=== PATIENT | female | born 1955 | race Caucasian/White ===

== ENCOUNTER 2025-06-06 16:58 | Emergency (ER) | payer MEDICARE, OTHER ==
[2025-06-06] MEDS ORDERED: Sodium Chloride 0.9% 10 ML Syringe FLUSH PRN (17:08)
[2025-06-06 17:39] LABS: BASOPHILS ABSOLUTE AUTO 0.1 x10^3/uL (0.0-0.2); BASOPHILS PERCENT AUTO 0.7 % (0.2-1.2); EOSINOPHILS ABSOLUTE AUTO 0.2 x10^3/uL (0.0-0.5); EOSINOPHILS PERCENT AUTO 2.0 % (0.0-4.0); IMMATURE GRAN ABSOLUTE AUTO 0.02 x10^3/uL (0.00-0.07); IMMATURE GRAN PERCENT AUTO 0.20 % (0.00-0.43); LYMPHOCYTES ABSOLUTE AUTO 2.1 x10^3/uL (1.0-4.8); LYMPHOCYTES PERCENT AUTO 23.9 % (25.0-50.0); MONOCYTES ABSOLUTE AUTO 0.6 x10^3/uL (0.0-0.8); MONOCYTES PERCENT AUTO 6.6 % (2.0-11.0); NEUTROPHILS ABSOLUTE AUTO 5.9 x10^3/uL (1.8-7.7); NEUTROPHILS PERCENT AUTO 66.6 % (50.0-80.0); PLATELET COUNT,PLT 207 x10^3/uL (130-400); RED BLOOD CELL COUNT 5.20 x10^6/uL (4.00-5.50); WHITE BLOOD CELL COUNT,WBC 8.9 x10^3/uL (4.0-10.0)
[2025-06-06 17:43] LABS: HCO3 VENOUS,POC 29 mmol/L (22-29); O2 SATURATION VENOUS,POC 59 %; PCO2 VENOUS,POC 49 mmHg (41-51); PH VENOUS,POC 7.39 pH (7.32-7.43); PO2 VENOUS,POC 32 mmHg
[2025-06-06 17:56] LABS: INR 1.0 (0.9-1.1); PTT,PARTIAL THROMBOPLSTIN TIME 23.4 SEC (23.5-33.2)
[2025-06-06 17:58] LABS: LACTIC ACID 1.5 mmol/L (0.4-2.0)
[2025-06-06 18:04] LABS: A/G RATIO 0.90; ALANINE AMINOTRANSFERASE,ALT 34 U/L (14-59); ASPARTATE AMNIOTRANSFERASE,AST 23 U/L (15-37); BILIRUBIN TOTAL 0.6 mg/dL (0.2-1.0); BLOOD UREA NITROGEN,BUN 16 mg/dL (7-18); CARBON DIOXIDE,CO2 27 mmol/L (21-32); CHLORIDE,CL 102 mmol/L (98-107); CREATININE 0.9 mg/dL (0.55-1.02); GLUCOSE RANDOM 147 mg/dL (70-99); POTASSIUM,K 4.1 mmol/L (3.5-5.1); PROTEIN TOTAL,TP 8.0 g/dL (6.4-8.2); SODIUM,NA 138 mmol/L (136-145); TSH ULTRASENSITIVE 1.501 uIU/mL (0.358-3.74)
[2025-06-06 18:05] LABS: ESTIMATED GFR 68 mL/min (>=60)
[2025-06-06] MEDS: Furosemide 40 MG/4 ML VIAL IV ONE (18:25)
[2025-06-06] MEDS: methylPREDNISolone Sodium Succinate 125 MG/2 ML SDV IV ONE (18:25)
[2025-06-06] MEDS: Nitroglycerin 0.4 MG Tab.SL SL ONE (18:26)
[2025-06-06] MEDS: Iopamidol 755 Mg/ML 100 ML Bottle IVPUSH ONE (19:45)
[2025-06-06] MEDS: Heparin Sodium/0.45% NaCl 25,000 UNITS/250 ML BAG IV ONE (19:45)
[2025-06-06] MEDS: Heparin Sodium 5,000 Units/ML Vial IVPUSH ONE (19:47)
== END 2025-06-06 22:05 | disposition short-term general hospital (02) ==
LOC: VM.ED 16:58
DX: J18.9 Pneumonia, unspecified organism (principal); I21.4 Non-ST elevation (NSTEMI) myocardial infarction; I11.0 Hypertensive heart disease with heart failure; I50.9 Heart failure, unspecified; E11.9 Type 2 diabetes mellitus without complications; Z88.8 Allergy status to other drugs, medicaments and biological substances
CPT/HCPCS: 36415; 71045; 71275; 80053; 82803; 83605; 83735; 84443; 84484; 85025; 85379; 85610; 85730; 86140; 93005; 93010; 96365; 96366; 96375; 99284; 99285-25; A9270-GY; J0696; J1644; J1938; J2305; J2919; Q9967